=== PATIENT | male | born 1985 | race African-American/Black ===

== ENCOUNTER 2019-07-31 02:54 | Emergency (ER) | payer SELFPAY ==
[~2019-07-31] VITALS: Ht 180.3 cm; Wt 87.0 kg
[2019-07-31] MEDS ORDERED: KETOROLAC 60MG/2ML VIAL IM STA (05:18)
[2019-07-31 05:50] VITALS: BP 127/79
== END 2019-07-31 06:23 | disposition home or self-care (01) ==
LOC: ER 02:54
DX: S39.012A Strain of muscle, fascia and tendon of lower back, initial encounter (principal); X50.0XXA Overexertion from strenuous movement or load, initial encounter; Y93.89 Activity, other specified; Y92.89 Other specified places as the place of occurrence of the external cause; Y99.0 Civilian activity done for income or pay
CPT/HCPCS: 96372; 99283; J1885

== ENCOUNTER 2022-06-01 16:05 | Emergency (ER) | payer MEDICAID, OTHER ==
[~2022-06-01] VITALS: Ht 180.3 cm; Wt 93.0 kg
[2022-06-01 17:26] VITALS: BP 141/96
== END 2022-06-01 23:13 | disposition left against medical advice (07) ==
LOC: ER 16:05
DX: Z53.21 Procedure and treatment not carried out due to patient leaving prior to being seen by health care provider (principal); R07.89 Other chest pain
CPT/HCPCS: 93005